=== PATIENT | male | born 1985 | race Caucasian/White ===

== ENCOUNTER 2016-09-09 23:03 | Emergency (ER) | payer OTHER ==
[2016-09-09 23:08] VITALS: PULSE 74; RESP 16; TEMP 97.9; O2SAT 96
[2016-09-09] MEDS ORDERED: SULFAMETHOX/TMP 800/160 MG 1 TAB PO ONE (23:40)
[2016-09-09] MEDS ORDERED: CEPHALEXIN 500 MG CAP PO ONE (23:40)
--- NOTE | 2016-09-09 23:40 | EDPHY ---
H & P Stated Complaint: L hand infection HPI/ROS: Chief complaint: Left hand infection History of present illness: This is a 30-year-old male who is brought to the emergency department from shelter by the police for evaluation of a left hand infection. Patient reports he developed a blister on his hand from pull-ups. The blisters become swollen and painful. He is now having redness and swelling developing to other parts of his hand. Denies other associated signs or symptoms including no history of direct trauma. No fevers. No red streaking up the hand. He can still move the digits and hand and the wrist well. - Personal History Current Tetanus Diphtheria and Acellular Pertussis (TDAP): Yes - Medical/Surgical History Hx Asthma: No Hx Chronic Respiratory Disease: No Hx Diabetes: No Hx Cardiac Disease: No Hx Renal Disease: No Hx Cirrhosis: No Hx Alcoholism: No Hx HIV/AIDS: No Hx Splenectomy or Spleen Trauma: No Other PMH: denies - Social History Smoking Status: Former smoker - Physical Exam Exam: General: Alert, nontoxic Skin: There is a blister to the palm of the hand. There is surrounding erythema and edema extending to the lateral aspect of the palm through the interdigital webspace between the thumb and 2nd finger and onto the dorsum of the hand. No induration or fluctuance noted to the rest of the hand. There is no swelling of the digits. Musculoskeletal: Patient moving the digits and wrist while hip. Vascular: Radial pulses 2+. Capillary refill brisk in the right hand. Neurologic: Sensation intact in the hand Constitutional: Initial Vital Signs Temperature (C) 36.6 C 09/09/16 23:06 Heart Rate 74 09/09/16 23:06 Respiratory Rate 16 09/09/16 23:06 Blood Pressure 166/74 H 09/09/16 23:06 O2 Sat (%) 96 09/09/16 23:06 O2 Delivery Mode Room Air Allergies/Adverse Reactions: No Known Allergies Allergy (Unverified 09/09/16 23:05) Home Medications: Medication Instructions Recorded Cephalexin [Keflex] 500 mg PO QID 10 Days 09/09/16 Sulfamethox/Tmp 800/160 mg 1 tab PO BID 10 Days 09/09/16 [Bactrim Ds] Medical Decision Making Procedures: Procedure: Abscess drainage. The patient's abscess was located on the palm of the hand. I obtained verbal consent from the patient to drain the abscess who was informed about the possibility of bleeding and pain. The abscess was incised with a scalpel and a moderate amount of purulent drainage was expressed. I irrigated the wound. The patient tolerated the procedure well. The procedure was performed by myself. ED Course/Re-evaluation: Patient seen in conjunction with my secondary supervising physician Dr. Darling Bolden. Patient presents to the emergency department concerned he has an infection to his left hand. There does appear to be a blister on his hand has became infected, the blister was opened and drained. A culture was obtained. I do not appreciate complications such as tenosynovitis or lymphangitis. He is started on Keflex and Bactrim. Discharged with the police back to shelter. Home care is discussed. Return precautions were given. Patient voiced understanding and agreement with plan. Differential Diagnosis: Included but not limited to abscess, cellulitis, unlikely osteomyelitis or infectious tenosynovitis or lymphangitis - Data Points Microbiology Results: MICROBIOLOGY 09/09/16 23:30 Hand - Swab Gram Stain - Final Medications Given: Discontinued Medications Cephalexin HCl (Keflex) 500 mg PO EDNOW ONE PRN Reason: Protocol Stop: 09/09/16 23:41 Last Admin: 09/09/16 23:51 Dose: 500 mg Trimethoprim/Sulfamethoxazole (Bactrim Ds) 1 ea PO EDNOW ONE PRN Reason: Protocol Stop: 09/09/16 23:41 Last Admin: 09/09/16 23:51 Dose: 1 ea Departure - Departure Disposition: Home, Routine, Self-Care Clinical Impression: Cellulitis of hand Condition: Good Instructions: Cephalexin (By mouth), Sulfamethoxazole/Trimethoprim (By mouth), Cellulitis (ED) Additional Instructions: Medically cleared for shelter Follow-up with the primary care doctor in 1-2 days for recheck Take all antibiotics as prescribed until finished even feeling better If symptoms worsen or new symptoms develop return to the emergency room immediately for recheck Referrals: NONE *PRIMARY CARE P,. [Primary Care Provider] - As per Instructions Prescriptions: Cephalexin [Keflex] 500 mg PO QID 10 Days Sulfamethox/Tmp 800/160 mg [Bactrim Ds] 1 tab PO BID 10 Days
[2016-09-09 23:53] VITALS: BP 155/74
== END 2016-09-09 23:53 | disposition home or self-care (01) ==
PROC: 0H9GXZZ Drainage of Left Hand Skin, External Approach (ICD-10-PCS; principal; 2016-09-09)
DX: L03.114 Cellulitis of left upper limb (principal); Z87.891 Personal history of nicotine dependence